=== PATIENT | female | born 1965 | race Caucasian/White ===

== ENCOUNTER 2024-06-30 08:55 | Outpatient (OUT) | payer BC, SELFPAY ==
[2024-06-30 09:28] LABS: Basophils Absolute Auto 0.1 10^3/uL (0.0-0.1); Basophils Percent Auto 0.9 % (0.2-2.0); Eosinophils Absolute Auto 0.1 10^3/uL (0.0-0.7); Eosinophils Percent Auto 1.7 % (0.9-7.0); Hematocrit 41.9 % (36.0-48.0); Hemoglobin 14.1 g/dL (12.0-16.0); Immature Granulocytes Abs Auto 0.01 10^3/uL (0.00-0.03); Immature Granulocytes Pct Auto 0.2 % (0.0-0.5); Lymphocytes Absolute Auto 1.2 10^3/uL (1.2-3.8); Lymphocytes Percent Auto 21.7 % (20.5-60.0); Mean Corpuscular HGB Conc 33.7 g/dL (29.9-35.2); Mean Corpuscular Hemoglobin 35.8 pg (26.7-34.0); Mean Corpuscular Volume 106.3 fL (81.0-99.0); Monocytes Absolute Auto 0.6 10^3/uL (0.3-0.8); Monocytes Percent Auto 10.5 % (1.7-12.0); Neutrophils Absolute Auto 3.5 10^3/uL (1.4-6.5); Platelet Count 240 10^3/uL (150-450); Red Cell Distribution Width 13.2 % (11.0-15.0); White Blood Count 5.4 10^3/uL (4.0-11.0)
[2024-06-30 09:48] LABS: Estimated Average Glucose 91 mg/dL; Glycohemoglobin A1C 4.8 % (4.5-6.2)
[2024-06-30 09:56] LABS: Red Blood Count 3.94 10^6/uL (4.20-5.40)
[2024-06-30 10:30] LABS: Anion Gap 13.6; BUN Creatinine Ratio 9.5; Calcium 9.2 mg/dL (8.5-10.1); Carbon Dioxide 29.3 mmol/L (21.0-32.0); Chloride 100 mmol/L (98-107); Estimated GFR (African America >60 (>=60 mL/min/1.73m^2); Estimated GFR (Non-African Ame >60 (>=60 mL/min/1.73m^2); Glucose 80 mg/dL (74-106); Sodium 140 mmol/L (136-145); TSH W/ REFLEX FT4 4.059 uIU/mL (0.358-3.740)
[2024-06-30 10:37] LABS: Potassium 2.9 mmol/L (3.5-5.1)
[2024-06-30 10:57] LABS: Free T4 0.65 ng/dL (0.76-1.46)
[2024-07-01 04:10] LABS: Insulin 6.9 uIU/mL (2.6-24.9)
== END 2024-06-30 08:56 | disposition home or self-care (01) ==
LOC: LAB 09:00
PROVIDERS: PCP Family Medicine; Visit Provider Family Medicine
DX: Z00.00 Encounter for general adult medical examination without abnormal findings (principal); E16.2 Hypoglycemia, unspecified; R53.83 Other fatigue
CPT/HCPCS: 36415; 80048; 83036; 83525; 84439; 84443; 85025

== ENCOUNTER 2024-07-11 06:05 | Emergency (ER) | payer BC, SELFPAY ==
[2024-07-11] VITALS (12 sets, daily range): BP systolic 137–173; BP diastolic 99–113; PULSE 89–105; TEMP 36.9; O2SAT 96–99; BMI 27.2
--- NOTE | 2024-07-11 06:26 | ECG_ITS ---
[facility] Test Date: 2024-07-11 Pat Name: JAY TSANG Department: Room: - Gender: Female [employer] Locator: : 1965 Requested By: ANIA HILLIARD Order Number: [id number] Reading MD: RADHA GILES Measurements Intervals [place] Rate: 94 P: 46 SD: 138 QRS: 21 QRSD: 70 T: 22 QT: 346 QTc: 398 Interpretive Statements 1100 Sinus rhythm Nonspecific T wave inversion anteroseptal leads 9110 normal ECG No previous ECG available for comparison Electronically Signed On 07-11-2024 22:21:12 EDT by RADHA GILES
--- NOTE | 2024-07-11 06:27 | ED.RECABL1 ---
HPI - Recheck/Abnormal Lab/Rx General Chief Complaint: Recheck/Abnormal Lab/Rx Stated Complaint: WEAKNESS Time Seen by Provider: 07/11/24 06:17 Source: patient Mode of arrival: walk-in Limitations: no limitations History of Present Illness HPI narrative: 59-year-old female presents to the emergency department for low potassium. She had blood work drawn on June 30, eleven days ago, and was notified that day that her potassium was low. She is here for evaluation. She has never had kidney issues or low potassium and is not on a potassium supplement. She has been off of her blood pressure medicine for several months. She was noted to have elevated blood pressure at triage. Related Data Home Medications ?Medication ?Instructions ?Recorded ?Confirmed No Known Home Medications 07/11/24 07/11/24 Allergies Allergy/AdvReac Type Severity Reaction Status Date / Time No Known Drug Allergies Allergy Verified 07/11/24 06:13 Review of Systems ROS Narrative A ten point review of systems is negative except as noted above. Exam Narrative Exam Narrative: Nurses note and vital signs reviewed and patient is not hypoxic. General: The patient appears well and in no apparent distress. Patient is resting comfortably on cart. Skin: Warm, dry, no pallor noted. There is no rash noted. Head: Normocephalic, atraumatic Eye: Normal conjunctiva, no drainage Ears, Nose, Mouth, and Throat: oral mucosa is moist. Nares patent. Cardiovascular: Regular Rate and Rhythm Respiratory: Patient is in no distress, no accessory muscle use, lungs are clear to auscultation, no wheezing, rales or rhonchi Back: non-tender GI: Soft and nontender Musculoskeletal: The patient has no evidence of calf tenderness, no pitting edema, symmetrical pulses noted bilaterally Neurological: A&O, normal speech Psychiatric: Cooperative Constitutional Vital Signs, click to edit/add: Last Vital Signs Temp 98.5 F 07/11/24 06:07 Pulse 103 H 07/11/24 06:31 Resp 18 07/11/24 06:31 BP 159/105 H 07/11/24 06:31 Pulse Ox 97 07/11/24 06:31 O2 Del Method Room Air 07/11/24 06:07 Course Vital Signs Vital signs: Vital Signs Temperature 98.5 F 07/11/24 06:07 Pulse Rate 98 H 07/11/24 06:07 Respiratory Rate 18 10/22/24 06:07 Blood Pressure 173/113 H 07/11/24 06:07 Pulse Oximetry 99 07/11/24 06:07 Oxygen Delivery Method Room Air 07/11/24 06:07 Temperature 98.5 F 07/11/24 06:07 Pulse Rate 103 H 07/11/24 06:31 Respiratory Rate 18 07/11/24 06:31 Blood Pressure 159/105 H 07/11/24 06:31 Pulse Oximetry 97 07/11/24 06:31 Oxygen Delivery Method Room Air 07/11/24 06:07 MDM - Recheck/Abnormal Lab/Rx MDM Narrative Medical decision making narrative: Tests are ordered and the patient is signed out to Dr. Amaya at change of shift. ECG Data Attestation: I personally reviewed and interpreted this ECG as follows: (EKG on my interpretation shows normal sinus rhythm with rate of 94 and no acute change.) Discharge Plan Discharge Patient Disposition: Still a Patient
[2024-07-11 06:45] LABS: Basophils Percent Auto 0.8 % (0.2-2.0); Eosinophils Absolute Auto 0.1 10^3/uL (0.0-0.7); Eosinophils Percent Auto 2.1 % (0.9-7.0); Hematocrit 39.3 % (36.0-48.0); Hemoglobin 13.2 g/dL (12.0-16.0); Lymphocytes Absolute Auto 1.3 10^3/uL (1.2-3.8); Lymphocytes Percent Auto 26.2 % (20.5-60.0); Mean Corpuscular HGB Conc 33.6 g/dL (29.9-35.2); Mean Corpuscular Hemoglobin 35.7 pg (26.7-34.0); Mean Corpuscular Volume 106.2 fL (81.0-99.0); Mean Platelet Volume 8.8 fL (9.5-13.5); Monocytes Absolute Auto 0.6 10^3/uL (0.3-0.8); Monocytes Percent Auto 12.6 % (1.7-12.0); Neutrophils Absolute Auto 2.8 10^3/uL (1.4-6.5); Neutrophils Percent Auto 58.3 % (43.0-75.0); Platelet Count 285 10^3/uL (150-450); Red Cell Distribution Width 12.7 % (11.0-15.0); White Blood Count 4.8 10^3/uL (4.0-11.0)
--- OUTSIDE RECORDS SUMMARY | 2024-07-11 06:53 | XMS_ITS | CCD ---
Author Organization [facility] Care Team Providers Care Tub Tender Name Role Phone MELINATRISTANNATHLAIEJUAN RAMON ALETHA [facility], PROVIDER NOT IN Attending ENRRIQUE Murguia Attending Unavailable ENRRIQUE FERNANDEZ Admitting Unavailable DR SHARON HEADLEY Consulting Unavailable ENRRIQUE FERNANDEZ Consulting Unavailable Medications Completed/Discontinued Medications Medication Drug Class(es) Dates Sig (Normalized) Sig (Original) 24 hr metoprolol succinate 25 mg extended release oral tablet (1 source) beta-Adrenergic Deepak Start: 06-12-2024 End: 06-12-2024 take 1 tablet by mouth once daily Metoprolol Succinate Discontinued 1 TAB PO Daily June 12, 2024 12:00am June 12, 2024 2:20pm [employer] tablet Orally Once a day; Note: Source Status: Start; Provider: Yaron Kerns Problems Problem Classification Problem Date Documented Da te Episodic/Chronic Administrative/social admission (4 sources) Encounter for pre-employment examination; Translations: [ENCOUNTER FOR PRE-EMPLOYMENT EXAM] Onset: 12-26-2021 Episodic Malaise and fatigue (2 sources) Fatigue; Translations: [Other fatigue] 06-12-2024 Episodic Other endocrine disorders (1 source) Hypoglycemia; Translations: [Hypoglycemia, unspecified] 06-12-2024 Chronic Other endocrine disorders (1 source) Hypoglycemia, unspecified; Translations: [Hypoglycemia, unspecified] 06-12-2024 Chronic Results Test Name Value Interpretation Reference Range Facil ity SARS-CoV-2 Qualitative RT PC Phil 10-07-2021 SARS-CoV-2 Qualitative RT PCR SARS-COV-2 RNA (AUDRA): Detected Units: Ref Range: Not Detected Status: A Testing Performed At: [facility] [address] [place] [address] This test was performed under the FDA's Emergency Use Authorization (EUA). Testing was performed using the Yadiel SARS-CoV-2 RT-PCR assay on the Audra Yadiel 6800 System. This test has not been approved for use in asymptomatic patients and its performance in this patient population has not been evaluated. Negative results do not rule out the presence of SARS-CoV-2/COVID-19. Fact sheets for this EUA can be found at the following links: For Healthcare Providers: https://www.fda.gov/ media/433082/downloa d For Patients: https://www.fda.gov/ media/499490/downloa d Normal [facility] Comment on above: Performed By: #### C OVID19 #### [facility] (DEFAULT) [address] [place] [address] Vital Signs Date Time Vital Sign Value Performing Clinician Ezekiel grimes 06-12-2024 14:15-0400 Body height 147.32 cm [facility] 06-12-2024 14:15-0400 Body mass index (BMI) [Ratio] 27.3 kg/m2 [facility] 06-12-2024 14:15-0400 Body weight 59.42 kg [facility] 06-12-2024 14:15-0400 Diastolic blood pressure 88 mm[Hg] [facility] 06-12-2024 14:15-0400 Heart rate 111 /min [facility] 06-12-2024 14:15-0400 Systolic blood pressure 139 mm[Hg] [facility] Encounters Encounter Date Encounter Type Care Provider Facility Start: 06-12-2024 End: 06-12-2024 ambulatory [facility] Work Phone: Start: 06-12-2024 End: 06-12-2024 Patient encounter procedure [facility] Work Phone: Start: 12-26-2021 End: 12-27-2021 ambulatory ENRRIQUE FERNANDEZ Facility: Start: 10-07-2021 End: 10-07-2021 [facility] Plan of Treatment Date Care Activity Detail Author Insulin [Units/volum e] in Serum or Plasma [facility] enter [facility] Payers Date Payer Category Payer Self-pay Unknown [id number] Unknown [place] BC/BS [id number] Social History Date Type Detail Facility Tobacco smoking stat [facility] Unknown if ever smoked [facility] Work Phone: Start: 1965 Sex Assigned At Female F [facility] Clinical Note 12-26-2021 Note Date & Type Note Facility 12-26-2021 Note EXAMINATION: XR CHES T 2 V HISTORY: History and physical examination, pre-employment COMPARISON: XR chest 11/10/2009 FINDINGS: LUNGS: No significant pulmonary parenchymal abnormalities. VASCULATURE: No increased pulmonary vasculature. PLEURA: No pneumothorax, effusion, or pleural thickening. CARDIAC: No cardiomegaly or cardiac silhouette abnormality. MEDIASTINUM: No visible mass or adenopathy. BONES: Scoliotic curvature of the lower thoracic and lumbar spine. OTHER: Negative. IMPRESSION: 1. Normal chest. No suspicious lung findings. 2. Scoliosis. Electronically authenticated by: SHARON HEADLEY Date: 2021-12-26 12:59 [facility] Evaluation note Note Date & Type Note Facility Evaluation note Diagnosis Onset Date Fatigue acute Hypoglycemia acute [facility] Work Phone: Summary Purpose Family History Relationship Condition Age at Onset Recorded Date/T tracie brother Diabetes mellitus Unknown father Diabetes mellitus Unknown Hypertension Unknown mother Hypertension Unknown Diabetes mellitus Unknown sister Diabetes mellitus Unknown Advance Directives Advance Directive Response Recorded Date/ Time Advance Directives No May 2:00pm Chief Complaint and Reason for Visit Chief Complaint Discuss Diabetes Reason for Visit Fatigue Hypoglycemia Additional Source Comments INFORMATION SOURCE (unrecogn ized section and content) DATE CREATED AUTHOR 10/08/2021 [facility] DATE CREATED AUTHOR AUTHOR'S ORGANIZ ATION 10/08/2021 [facility] DATE CREATED AUTHOR AUTHOR'S ORGANIZ ATION 01/01/2022 [facility] Teams (unrecognized sec tion and content) Team Status: Active Member Role Status Dates Katya E Marrufo , MD Primary Care Provider Active Team Status: Inactive Member Role Status Dates Katya Marrufo MD Primary Care Provide r, Attending Provider Active Start: June 12, 2024 End: June 12, 2024 Goals (unrecognized section and content) Goals may be documented in a n alternate section FOR RECORDS PERTAINING TO PATIENTS WHO ARE OR HAVE BEEN ENROLLED IN A CHEMICAL DEPENDENCY/SUBSTANCEABUSE PROGRAM, SOME INFORMATION MAY BE OMITTED. This clinical summary was aggregated from multiple sources. Caution should be exercised in using it in the provision of clinical care. This summary normalizes information from multiple sources, and as a consequence, information in this document may materially change the coding, format and clinical context of patient data. In addition, data may be omitted in some cases. CLINICAL DECISIONS SHOULD BE BASED ON THE PRIMARY CLINICAL RECORDS. [facility] [employer] [facility]. provides no warranty or guarantee of the accuracy or completeness of information in this document.
[2024-07-11 07:08] LABS: Anion Gap 13.7; BUN Creatinine Ratio 13.8; Calcium 8.7 mg/dL (8.5-10.1); Carbon Dioxide 28.9 mmol/L (21.0-32.0); Chloride 106 mmol/L (98-107); Estimated GFR (African America >60 (>=60 mL/min/1.73m^2); Estimated GFR (Non-African Ame >60 (>=60 mL/min/1.73m^2); Glucose 86 mg/dL (74-106); Potassium 3.6 mmol/L (3.5-5.1); Sodium 145 mmol/L (136-145)
== END 2024-07-11 07:31 | disposition home or self-care (01) ==
PROVIDERS: Emergency Provider Emergency Medicine; PCP Family Medicine
DX: E87.6 Hypokalemia (principal)
CPT/HCPCS: 36415; 80048; 85025; 93005; 99284